=== PATIENT | female | born 1955 | race Caucasian/White ===

== ENCOUNTER 2024-11-19 20:55 | Emergency (ER) | payer OTHER, SELFPAY ==
[2024-11-19 21:05] VITALS: BP 134/67; PULSE 99; RESP 20; TEMP 37.2; O2SAT 94; BMI 30.8
[2024-11-19 21:42] LABS: Add Manual Diff / Slide Review NO; Basophils Absolute Auto 0 /uL (0-100); Basophils Percent Auto 0.3 % (0-2); Eosinophils Absolute Auto 100 /uL (0-450); Eosinophils Percent Auto 0.6 % (2-4); Hematocrit 36.1 % (36-46); Hemoglobin 11.9 g/dL (12.0-16.0); Lymphocytes Absolute Auto 1700 /uL (1100-4500); Lymphocytes Percent Auto 12.3 % (25-40); Mean Corpuscular HGB Conc 33.1 % (30-36); Mean Corpuscular Hemoglobin 27.4 PG (26-34); Monocytes Absolute Auto 1100 /uL (0-900); Monocytes Percent Auto 7.6 % (3-14); Neutrophils Absolute Auto 11200 /uL (1500-7000); Neutrophils Percent Auto 79.2 % (50-75); Platelet Count 404 X10^3/uL (150-400); Red Blood Cell Count 4.35 X10^6/uL (4.0-5.2); Red Cell Distribution Width 14.6 % (11.6-14.8); White Blood Cell Count 14.1 X10^3/uL (4.5-11.0)
[2024-11-19 21:46] LABS: Alanine Aminotransferase 37 IU/L (<35); Albumin 3.3 g/dL (3.5-5.0); Albumin Globulin Ratio 0.8 (1.0-2.8); Alkaline Phosphatase 121 U/L (38-126); Aspartate Aminotransferase 32 IU/L (14-36); BUN Creatinine Ratio 16.1 (6-22); Bilirubin Total 0.5 mg/dL (0.2-1.3); Blood Urea Nitrogen 9 mg/dL (7-17); Calcium 8.3 mg/dL (8.4-10.2); Carbon Dioxide 26 mmol/L (22-32); Chloride 95 mmol/L (98-107); Estimated Glomerular Filt Rate > 60 mL/min (>60); Globulin 3.9 g/dL (1.7-4.1); Glucose 303 mg/dL (70-99); HEMOLYSIS < 15 (0-50); Lipase 162 U/L (23-300); Potassium 4.8 mmol/L (3.4-5.1); Sodium 127 mmol/L (137-145); Total Protein 7.2 g/dL (6.3-8.2)
--- NOTE | 2024-11-19 21:55 | DI.CT.S_ITS ---
PROCEDURE: CT ABDOMEN PELVIS W CON INDICATIONS: R kidney stent, abd pain, fever 101 TECHNIQUE: After the administration of intravenous contrast, axial sections acquired from the lung bases to the pubic symphysis. Coronal and sagittal reformats were performed. For radiation dose reduction, the following was used: automated exposure control, adjustment of mA and/or kV according to patient size. COMPARISON: None. FINDINGS: Image quality: Diagnostic. Lower Chest: Large hiatal hernia. Bibasilar scarring. ABDOMEN: Liver: No solid mass. Gallbladder: No radiopaque gallstones or wall thickening. Biliary ducts: No biliary dilation. Pancreas: No ductal dilation. Spleen: Size is within normal limits. Adrenal Glands: No adrenal nodules. Kidneys and Ureters: Right-sided nephroureteral stent, extending from the proximal right ureter into the urinary bladder. There is right-sided urothelial wall thickening and cortical stratification of the right kidney. Extending from the posterior/medial aspect of the right kidney, there is a rim enhancing abscess extending through the renal fascia into the posterior right segments of the liver. This measures 8.3 by 3.9 by 4.1 cm. Stomach and Bowel: Normal colonic caliber, without significant wall thickening. Colonic diverticulosis without evidence of diverticulitis. Peritoneum: No abnormal intraperitoneal fluid. No free air. Ventral Wall: No significant ventral hernia. Abdominal Nodes: No retroperitoneal or mesenteric adenopathy by size criteria. Vessels: Aorta and inferior vena cava are normal in size. PELVIS: Pelvic Organs: Unremarkable. Bladder: No bladder wall thickening, accounting for underdistention. Pelvic Nodes: No enlarged lymph nodes. Miscellaneous: Moderate left and small right inguinal hernias containing fat. Bones: No aggressive osseous abnormality. IMPRESSION: Right-sided pyelonephritis, with associated abscess extending from the lateral aspect of the kidney into the hepatic parenchyma. This measures 8.3 x 3.9 x 4.1 cm. This would be amenable to CT-guided drainage. Right-sided nephroureteral stent extends from the proximal right ureter into the urinary bladder. Other ancillary findings as above. Dictated by: Donnell Szymanski M.D. on 11/19/2024 at 22:37 Approved by: Donnell Szymanski M.D. on 11/19/2024 at 22:42
[2024-11-19 22:19] LABS: Urine Volume 10mL (spun)
[2024-11-19 22:23] LABS: RBC Urine 5-10/HPF (0-5/HPF)
[2024-11-19 22:24] LABS: Bacteria Urine Few (2-10); Transitional Epi Cells Urine 0-1/HPF (0-5/HPF)
[2024-11-19 22:26] LABS: Squamous Epithelial Cell Urine 5-10 /HPF (0-5/HPF); WBC Urine 30-100/HPF (0-5/HPF)
[2024-11-19 22:27] LABS: Culture Indicated Urine Specimen Cultured
[2024-11-19 23:27] VITALS: PULSE 85; RESP 19; O2SAT 96
[2024-11-19 23:30] VITALS: BP 114/55; PULSE 83; RESP 21; O2SAT 96
--- NOTE | 2024-11-19 23:55 | EKG_ITS ---
[address] [address] Test Date: 2024-11-19 Pat Name: Daniela Lopez Department: [facility] Room: Gender: Female Core Analysis Operator: LYNDSEY LINDSAY : 1955 Requested By: Order Number: [id number] Reading MD: Jose Carnes Measurements Intervals [place] Rate: 87 P: 53 IN: 152 QRS: 60 QRSD: 140 T: 6 QT: 398 QTc: 478 Interpretive Statements Normal sinus rhythm Right bundle branch block Cannot rule out Inferior infarct , age undetermined Electronically Signed On 11-20-2024 8:38:00 PDT by Jose Carnes
--- NOTE | 2024-11-19 23:58 | ED_ITS ---
HPI - Abdominal Pain General Chief Complaint: Abdominal Pain Stated Complaint: kidney inf., kindey abscess abd pain Time Seen by Provider: 11/19/24 21:55 Source: patient Mode of arrival: Ambulatory History of Present Illness HPI narrative: 69-year-old female history of poorly controlled type 2 diabetic recently admitted and discharged from [facility] for the management of nephrolithiasis complicated by UTI and perinephric abscess status post stent placement discharged on Levaquin presents tonight with fever chills body aches and worsening right flank pain. Urology was consulted she is was status post cystoscopy with placement of stent which grew out Proteus mirabilis pyelonephritis and bacteremia but due to clinical improvement no aspiration or drainage of the abscess was attempted. Other than what is stated 14 point review of system is negative. Related Data Allergies Allergy/AdvReac Type Severity Reaction Status Date / Time No Known Drug Allergies Allergy Verified 11/20/24 00:43 Review of Systems Review of Systems ROS Unobtainable: All systems reviewed & are unremarkable except as noted in HPI and below Exam Narrative Exam Narrative: GENERAL: [69] year old patient appears stated age. Well-developed patient, in mild distress. HEAD: Atraumatic. Normocephalic. EYES: Pupils equal round and reactive. Extraocular motions intact. No scleral icterus. No injection or drainage. NECK: Trachea midline. Non tender CARDIOVASCULAR: Regular rate and rhythm without murmurs, gallops, or rubs. RESPIRATORY: Clear to auscultation. Breath sounds equal bilaterally. No wheezes, rales, or rhonchi. GASTROINTESTINAL: Abdomen soft, non-tender, nondistended. EXTREMITIES: No edema or joint tenderness. BACK: Nontender without deformity or crepitance. R flank tenderness. NEURO: AOx3. GCS 15 nonfocal neuro exam SKIN: No rash or erythema of visible areas Initial Vital Signs Initial Vital Signs: Vital Signs Temperature 98.9 F 11/19/24 21:05 Pulse Rate 99 H 11/19/24 21:05 Respiratory Rate 20 11/19/24 21:05 Blood Pressure 134/67 11/19/24 21:05 Pulse Oximetry 94 11/19/24 21:05 Oxygen Delivery Method Room Air 11/19/24 21:05 Course Orders Ordered: ED Orders 11/19/24 21:15 EKG-12 Lead Stat 11/19/24 21:26 Blood Culture Stat Complete Blood Count AUTO DIFF Stat Comprehensive Metabolic Panel Stat Lipase Stat Procalcitonin Stat 11/19/24 21:40 Urine Culture Stat Urine Microscopic Stat 11/19/24 21:55 CT abdomen pelvis w con Stat 11/19/24 23:58 Lactate (Lactic Acid) Stat Ondansetron HCl (Ondansetron 4 Mg/2 Ml Inj) 4 mg IV NOW PRN PRN Reason: Nausea And Vomiting Ondansetron HCl (Ondansetron 4 Mg Odt) 4 mg PO NOW PRN PRN Reason: Nausea And Vomiting Discontinued Medications Lactated Ringer's (Lactated Ringers) 1,000 mls @ 1,000 mls/hr IV BOLUS ONE Stop: 11/20/24 00:57 Last Infusion: 11/20/24 01:23 Dose: Infused Documented By: Admin: 11/20/24 00:21 Dose: 1,000 mls/hr Documented By: SHY Ceftriaxone Sodium 2,000 mg/ (Sodium Chloride) 100 mls @ 200 mls/hr IV NOW ONE Stop: 11/19/24 23:59 Last Infusion: 11/20/24 01:51 Dose: Infused Documented By: Admin: 11/20/24 01:10 Dose: 200 mls/hr Documented By: SHY Piperacillin Sod/Tazobactam (Sod 4.5 gm/ Sodium Chloride) 100 mls @ 200 mls/hr IV NOW ONE Stop: 11/20/24 00:15 Insulin Human Regular (Insulin Regular 100 Unit/Ml 3 Ml Vial) 8 unit IV NOW ONE Stop: 11/20/24 00:23 Last Admin: 11/20/24 00:54 Dose: Not Given Documented By: SHY Insulin Human Regular (Insulin Regular 100 Unit/Ml 3 Ml Vial) 3 unit IV NOW ONE Stop: 11/20/24 00:55 Last Admin: 11/20/24 01:04 Dose: 3 unit Documented By: SHY Co-signed By: LESLIE Vital Signs Vital signs: Vital Signs - 8 hr 11/19/24 21:05 11/19/24 23:27 11/19/24 23:30 Temperature 98.9 F Pulse Rate 99 H 85 Respiratory Rate 20 19 Blood Pressure 134/67 114/55 L Pulse Oximetry 94 96 Oxygen Delivery Method Room Air Room Air 11/19/24 23:30 11/20/24 00:00 11/20/24 00:00 Temperature Pulse Rate 83 84 Respiratory Rate 21 14 Blood Pressure 122/57 L Pulse Oximetry 96 94 Oxygen Delivery Method Room Air Room Air 11/20/24 00:30 11/20/24 00:30 11/20/24 01:00 Temperature Pulse Rate 84 Respiratory Rate 22 Blood Pressure 118/56 L 127/60 Pulse Oximetry 93 Oxygen Delivery Method 11/20/24 01:00 Temperature Pulse Rate 82 Respiratory Rate 21 Blood Pressure Pulse Oximetry 93 Oxygen Delivery Method MDM - Abdominal Pain Lab Data 11/19/24 21:26 11/19/24 21: Labs: Lab Results 11/19/24 11/19/24 11/20/24 Range/Units 21:26 21:40 00:33 WBC 14.1 H (4.5-11.0) X10^3/uL RBC 4.35 (4.0-5.2) X10^6/uL Hgb 11.9 L (12.0-16.0) g/dL Hct 36.1 (36-46) % MCV 83.0 (80-100) fL MCH 27.4 (26-34) PG MCHC 33.1 (30-36) % RDW 14.6 (11.6-14.8) % Plt Count 404 H (150-400) X10^3/uL Neut % (Auto) 79.2 H (50-75) % Lymph % (Auto) 12.3 L (25-40) % [place] % (Auto) 7.6 (3-14) % Eos % (Auto) 0.6 L (2-4) % Baso % (Auto) 0.3 (0-2) % Neut # (Auto) 61398 H (3202-8178) /uL Lymph # (Auto) 1700 (2410-3590) /uL [place] # (Auto) 1100 H (0-900) /uL Eos # (Auto) 100 (0-450) /uL Baso # (Auto) 0 (0-100) /uL Sodium 127 L (137-145) mmol/L Potassium 4.8 (3.4-5.1) mmol/L Chloride 95 L (98-107) mmol/L Carbon Dioxide 26 (22-32) mmol/L BUN 9 (7-17) mg/dL Creatinine 0.56 (0.52-1.04) mg/dL Estimated GFR > 60 (>60) mL/min BUN/Creatinine Ratio 16.1 (6-22) Glucose 303 H (70-99) mg/dL Lactate 1.3 (0.7-2.1) mmol/L Calcium 8.3 L (8.4-10.2) mg/dL Total Bilirubin 0.5 (0.2-1.3) mg/dL AST 32 (14-36) IU/L ALT 37 H (<35) IU/L Alkaline Phosphatase 121 (38-126) U/L Total Protein 7.2 (6.3-8.2) g/dL Albumin 3.3 L (3.5-5.0) g/dL Globulin 3.9 (1.7-4.1) g/dL Albumin/Globulin Ratio 0.8 L (1.0-2.8) Lipase 162 (23-300) U/L Procalcitonin 0.431 (<0.5) ng/mL Urine RBC 5-10/hpf H (0-5/HPF) Urine WBC 30-100/hpf H (0-5/HPF) Ur Squamous Epith Cells 5-10 /hpf H (0-5/HPF) Ur Transition Epith Cell 0-1/hpf (0-5/HPF) Urine Bacteria Few (2-10) H (None) Ur Culture Indicated? Specimen cultured Vol Urine Centrifuged 10ml (spun) Point of care testing: Point of Care Testing Glucose POC 243 Urine Dip Bedside Urine Glucose Negative Bedside Urine Bilirubin - Negative Bedside Urine Ketone - Negative Urine Specific [place] 1.015 Bedside Urine Occult Blood ++ Bedside Urine pH 6.5 Bedside Urine Protein +/- 15 Bedside Urine Urobilinogen - Negative Bedside Urine Nitrite - Negative Bedside Urine Leukocytes - Negative Esterase Imaging Data CT scan - abdomen/pelvis: Radiologist's Impression: [address] [address] [address] Scan Report Signed Patient: Daniela Lopez MR#: [id number] : 1955 Acct:[id number] Age/Sex: 69 / F Date of Service: 11/19/24 Loc: ED Accession Number: [id number] Procedure: CT abdomen pelvis w con Ordering Provider: Raudel Henley D.O. PROCEDURE: CT ABDOMEN PELVIS W CON INDICATIONS: R kidney stent, abd pain, fever 101 TECHNIQUE: After the administration of intravenous contrast, axial sections acquired from the lung bases to the pubic symphysis. Coronal and sagittal reformats were performed. For radiation dose reduction, the following was used: automated exposure control, adjustment of mA and/or kV according to patient size. COMPARISON: None. FINDINGS: Image quality: Diagnostic. Lower Chest: Large hiatal hernia. Bibasilar scarring. ABDOMEN: Liver: No solid mass. Gallbladder: No radiopaque gallstones or wall thickening. Biliary ducts: No biliary dilation. Pancreas: No ductal dilation. Spleen: Size is within normal limits. Adrenal Glands: No adrenal nodules. Kidneys and Ureters: Right-sided nephroureteral stent, extending from the proximal right ureter into the urinary bladder. There is right-sided urothelial wall thickening and cortical stratification of the right kidney. Extending from the posterior/medial aspect of the right kidney, there is a rim enhancing abscess extending through the renal fascia into the posterior right segments of the liver. This measures 8.3 by 3.9 by 4.1 cm. Stomach and Bowel: Normal colonic caliber, without significant wall thickening. Colonic diverticulosis without evidence of diverticulitis. Peritoneum: No abnormal intraperitoneal fluid. No free air. Ventral Wall: No significant ventral hernia. Abdominal Nodes: No retroperitoneal or mesenteric adenopathy by size criteria. Vessels: Aorta and inferior vena cava are normal in size. PELVIS: Pelvic Organs: Unremarkable. Bladder: No bladder wall thickening, accounting for underdistention. Pelvic Nodes: No enlarged lymph nodes. Miscellaneous: Moderate left and small right inguinal hernias containing fat. Bones: No aggressive osseous abnormality. IMPRESSION: Right-sided pyelonephritis, with associated abscess extending from the lateral aspect of the kidney into the hepatic parenchyma. This measures 8.3 x 3.9 x 4.1 cm. This would be amenable to CT-guided drainage. Right-sided nephroureteral stent extends from the proximal right ureter into the urinary bladder. Other ancillary findings as above. Dictated by: Donnell Szymanski M.D. on 11/19/2024 at 22:37 Approved by: Donnell Szymanski M.D. on 11/19/2024 at 22:42 ECG Data Interpretation: NSR RBBB HR 87 NJ 152 [id number] QT [address]-t wave change NO previous EKG MDM Narrative Medical decision making narrative: All lab work, vital signs, nurse triage note, medication list, previous ER visits, and all imaging studies reviewed. White count of 14 with a left shift hemoglobin of 11 point platelet 404 sodium 127 potassium 4.8 chloride 95 CO2 of 26 glucose of 303 lactic acid 1.[address] scan abdomen and pelvis with IV contrast shows right-sided pyelonephritis with associated abscess extending from the lateral aspect of the kidney into the hepatic parenchyma and measuring 8.3 x 3.9 x 4.1 cm. Right-sided nephroureteral stent extends from the proximal right ureter into the urinary bladder. Patient was given lactated ringer 1 L bolus regular insulin 3 units for which sugar is now down to 120s, cultures x2 obtained patient given a dose of Rocephin and Zosyn here. Case discussed with Dr. Ana Chung urologist on-call who agrees patient will need to be admitted and to admit to hospitalist service for which I spoke to Dr. Barak Wang who has graciously accepted patient for inpatient admission at [facility]. Differential diagnosis includes sepsis, kidney infection, kidney abscess, electrolyte derangement, failed outpatient therapy. Discharge Plan Departure Patient Disposition: [facility] Clinical Impression: Abscess of right kidney, Acute pyelonephritis
[2024-11-20] VITALS (17 sets, daily range): BP systolic 107–143; BP diastolic 53–66; PULSE 72–84; RESP 14–24; TEMP 36.6; O2SAT 92–96
[2024-11-20] MEDS: LACTATED RINGERS 1,000 ML 1000 ML IV (00:21)
[2024-11-20 00:29] LABS: Procalcitonin 0.431 ng/mL (<0.5)
[2024-11-20 01:01] LABS: Lactate (Lactic Acid) 1.3 mmol/L (0.7-2.1)
[2024-11-20] MEDS: INSULIN REGULAR 100 UNIT/ML 3 ML VIAL IV (01:04)
[2024-11-20] MEDS: cefTRIAXone 2,000 MG in SODIUM CHLORIDE 0.9% 100 ML 200 MG IV (01:10)
[2024-11-20] MEDS: PIPERACILLIN/TAZO 4.5 GM in SODIUM CHLORIDE 0.9% 100 ML IV (01:55)
[2024-11-20] MEDS: ACETAMINOPHEN 325 MG TABLET 650 MG PO (03:32)
--- NOTE | 2024-11-20 07:12 | PC.NURSE ---
Report given to Inna MEEK x [phone] at [facility].
== END 2024-11-20 07:14 | disposition short-term general hospital (02) ==
PROVIDERS: Emergency Provider Family Medicine
DX: N15.1 Renal and perinephric abscess (principal); N10 Acute pyelonephritis
CPT/HCPCS: 36415; 74177; 80053; 81003; 81015; 82962; 83605; 83690; 84145; 85025; 87040; 87086; 93005; 96361; 96365; 96367; 96375; 99284; J0696; J2543; Q9967